=== PATIENT | male | born 1990 | race Caucasian/White ===

== ENCOUNTER 2024-05-10 22:42 | Emergency (ER) | payer OTHER ==
[~2024-05-10] VITALS: Ht 167.6 cm; Wt 81.6 kg
[2024-05-10 22:49] VITALS: BP 134/60; PULSE 68; RESP 14; TEMP 97.6; O2SAT 99
[2024-05-11] MEDS ORDERED: HYDR-5080 PO (00:12)
[2024-05-11] MEDS: KETOROLAC 30 MG/ML VIAL IM ONE (00:16)
[2024-05-11] MEDS: ACETAMINOPHEN EXTRA STRENGTH 500 MG TAB PO ONE (00:17)
== END 2024-05-11 00:38 | disposition home or self-care (01) ==
LOC: MED 22:42
DX: S82.832A Other fracture of upper and lower end of left fibula, initial encounter for closed fracture (principal); X50.1XXA Overexertion from prolonged static or awkward postures, initial encounter; Y93.66 Activity, soccer; Y92.322 Soccer field as the place of occurrence of the external cause; Y99.8 Other external cause status
CPT/HCPCS: 73610; 96372; 99283; J1885